=== PATIENT | male | born 1965 ===

== ENCOUNTER 2016-09-24 02:14 | Inpatient (IN) | payer OTHER ==
[2016-09-24] VITALS (23 sets, daily range): BP systolic 77–114; BP diastolic 43–76
--- NOTE | 2016-09-24 03:46 | ED ORDER SUMMARY ---
..... Patient: DARRYL TOBIAS OrderSheet [facility] VisitID: [id number] [place] [address] 50y, M Registration Date/Time: 09/24/2016 ORDER SHEET Weight: 73.9 kg (stated) Allergies: No Known Drug Allergy GENERAL ORDERS: CBC w Diff Urgent (02:24 09/24/2016 Campos Langford) (Ack 2:27 AMcQuoid ER Tech1) (2:48 EInderbitzen R.N.) CMP Urgent (02:24 09/24/2016 Campos Langford) (Ack 2:27 AMcQuoid ER Tech1) (2:48 EInderbitzen R.N.) UA-Culture if indicated Urgent (02:24 09/24/2016 Campos Langford) (Ack 2:27 AMcQuoid ER Tech1) Urine Drug Screen Urgent (02:24 09/24/2016 Campos Langford) (Ack 2:27 AMcQuoid ER Tech1) Ethyl Alcohol Urgent (02:24 09/24/2016 Campos Langford) (Ack 2:27 AMcQuoid ER Tech1) (2:48 EInderbitzen R.N.) Ammonia Level Urgent (02:24 09/24/2016 Campos Langford) (Ack 2:27 AMcQuoid ER Tech1) (2:48 EInderbitzen R.N.) Lactic Acid for Sepsis Protocol Urgent (02:24 09/24/2016 Campos Langford) (Ack 2:27 AMcQuoid ER Tech1) (2:48 EInderbitzen R.N.) PCT (Procalcitonin) Urgent (02:24 09/24/2016 Campos Langford) (Ack 2:27 AMcQuoid ER Tech1) (2:48 EInderbitzen R.N.) PT with INR Urgent (02:51 09/24/2016 Campos Langford) (2:52 AMcQuoid ER Tech1) PTT Urgent (02:51 09/24/2016 Campos Langford) (2:52 AMcQuoid ER Tech1) MEDICATION ORDERS: - (Albumin 25 grams IV x 1 now.) (03:44 09/24/2016 Campos Langford) IV FLUIDS: IV NS : initial bolus none -, then 1000 mL/hr for X1 (NOW) (02:23 09/24/2016 Campos Langford) (Ack 2:35 HSoule) (2:49 Ced R.N.) IV NS : initial bolus none -, then 1000 mL/hr for X2 (NOW) (03:45 09/24/2016 Campos Langford) ORDER SHEET NOTES: This document has not been locked and should not be saved in the medical record.
--- NOTE | 2016-09-24 03:46 | ED CLINICAL REPORT ---
Clinical Report - Physicians/Mid Levels [facility] [address] [place] [address] 09/24/2016 2:15 Patient: DARRYL TOBIAS *This is a preliminary document and is subject to change Time Seen: 02:19; initial patient contact. LABS, X-RAYS, AND EKG Laboratory Tests: CBC w Diff: (ROSAS: 09/24/2016 02:30) ( MsgRcvd 09/24/2016 03:16) Final results Test Result Flag Units (Reference) WHITE BLOOD COUNT 8.4 K/uL (4.5-11.5) RED BLOOD COUNT 2.64 L M/uL (4.50-5.90) HEMOGLOBIN 10.6 L gm/dL (13.5-17.5) HEMATOCRIT 31.9 L % (41.0-53.0) MEAN CELL VOLUME 121 H fL (80-100) MEAN CORPUSCULAR HGB 40 H pg (26-34) MEAN CORPUSCULAR HGB CONC 33 g/dL (31-37) RED CELL DISTRIBUTION WIDTH 15.2 H % (11.6-14.8) PLATELET COUNT 59 L K/uL (150-400) NO PLATELET CLUMPS SEEN. NEUTROPHIL % 55.5 % (50-75) LYMPH % 23.7 L % (25-40) MONO % 15.6 H % (3-14) EOSINOPHIL % 4.9 H % (0-4) BASOPHIL % 0.3 % (0-2) RBC MORPHOLOGY 2+ MACROCYTOSIS PT with INR: (ROSAS: 09/24/2016 02:30) ( MsgRcvd 09/24/2016 03:01) Final results Test Result Flag Units (Reference) INR 1.6 H (0.8-1.2) Low Intensity Therapy: INR 1.5-2.0 PT range 18.5-23.1Mod.Intensity Therapy: INR 2.0-3.0 PT range 23.1-31.5High Intensity Therapy: INR 2.5-3.5 PT range 27.4-35.5High Intensity Therapy 2: INR 3.0-4.0 PT range 31.5-39.3 APTT 46 H SECONDS (24-34) Ammonia Level: (ROSAS: 09/24/2016 02:30) ( MsgRcvd 09/24/2016 02:56) Final results Test Result Flag Units (Reference) AMMONIA 18 umol/L (11-32) [id number]: (ROSAS: 09/24/2016 02:30) ( MsgRcvd 09/24/2016 03:30) Final results Test Result Flag Units (Reference) PROCALCITONIN <0.5 ng/mL (0-0.5) PCT Concentration: Interpretation : Risk/option for action PCT <=0.5 ng/mL : Systemic : Low risk forinfection(sepsis): progression to severeis not likely. : systemic infection.Local bacterial : CAUTION-PCT levelsinfection is : below 0.5 ng/mL do notpossible. : exclude an infection,because localizedinfections (withoutsystemic signs) may beassociated with suchlow levels. If PCT ismeasured very earlyafter a bacterialchallenge (usually <6hours), these valuesmay still be low. Inthis case PCT shouldbe re-assessed 6-24hours later. PCT >0.5 and : Systemic infection: Moderate risk for<= 2 ng/mL : (sepsis) is : progression to severepossible, but : systemic infection.other conditions : The patient should beare known to : closely monitoredelevate PCT. : both clinically andby re-assessing PCTwithin 6-24 hours. PCT > 2 ng/mL : Systemic infection: High risk for(sepsis) is likely: progression to severeunless other : systemic infection.causes are known. : PCT >= 10 ng/mL : Important systemic: High likelihood ofinflammatory : severe sepsis orresponse, almost : septic shock.exclusively due to:severe bacterial :sepsis or septic :shock. : CMP: (ROSAS: 09/24/2016 02:30) ( MsgRcvd 09/24/2016 03:04) Final results Test Result Flag Units (Reference) GLUCOSE 104 mg/dL (70-110) BUN 35 H mg/dL (7-18) CREATININE 2.7 H mg/dL (0.6-1.3) Estimated GFR 26.51 mL/min Estimated GFR- 32.13 mL/min Note: Persistent reduction over 3 months in eGFR<60 mL/min/1.73 m2 defines CKD. Patients with eGFR values>=60 mL/min/1.73 m2 may also have CKD if evidence ofpersistent proteinuria. Additional information may be foundat www.kidney.org. SODIUM 135 L mmol/L (136-145) POTASSIUM 4.1 mmol/L (3.5-5.1) CHLORIDE 103 mmol/L (98-107) CARBON DIOXIDE 20 L mmol/L (21-32) CALCIUM 8.4 L mg/dL (8.5-10.1) TOTAL PROTEIN 6.7 g/dL (6.4-8.2) ALBUMIN 2.3 L g/dL (3.3-5.0) BILIRUBIN, TOTAL 8.7 H mg/dL (0.0-1.0) ALKALINE PHOSPHATASE 105 U/L (46-116) AST (SGOT) 38 H U/L (15-37) ALT (SGPT) 16 U/L (12-78) ETHYL ALCOHOL 78 H mg/dL (3-10) LACTIC ACID SEPSIS PROTOCOL 2.0 mmol/L (0.4-2.0) . PROGRESS AND PROCEDURES Discussed case with on-call health care provider, (02:[address] Alexander, wants him admitted to hospitalist due to medical co-morbidities and will take to the OR in the AM.). Wesley Nelson Dr.
--- NOTE | 2016-09-24 03:46 | ED NURSING NOTES ---
Clinical Report - Nurses [facility] [address] [place] [address] 09/24/2016 2:15 [id number] Triage time 02:Sep 24 2016. Acuity: LEVEL 2. Chief Complaint: (hernia perforation thru abd wall). 02:22 09/24/16. SEPSIS SCREEN: Sepsis Screen. Negative (no infection suspected/documented). FRANCISCO COMA SCORE: Francisco Coma Scale: 15- eyes open spontaneously (4); best verbal response- oriented x 4 (5); best motor response- obeys commands (6). --02:22 Rebecca Sadler R.N. 02:18 09/24/16. Pain level now 0/10. --02:22 Rebecca Sadler R.N. Weight: 73.9 kg stated. Height/Length: 68 inches Per Patient. BMI: 24.8. --02:17 Rebecca Sadler R.N. Medications Spironolactone Oral. --05:18 Rebecca Sadler R.N. Lasix Oral. --05:19 Rebecca Sadler R.N. Propranolol. --05:19 Rebecca Sadler R.N. Lactulose Oral. --05:19 Rebecca Sadler R.N. Medication/allergy information source: the patient. --02:22 Rebecca Sadler R.N. Allergies No Known Drug Allergy. --02:19 Rebecca Sadler R.N. History Arrived by EMS. Historian: patient. This started today. Onset. (6 hours ago ( 830pm)). No fever, weakness, cough, difficulty breathing or skin rash. Denies muscle aches. 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 SOCIAL HX: Heavy tobacco smoker (cigarette)- 1 pack per day. Occasional alcohol use. No drug use. No infectious disease exposure. ABUSE ASSESSMENT: No report of abuse. SELF HARM ASSESSMENT: A self harm assessment was performed. The patient answered "no" to the question "Have you recently felt down, depressed, or hopeless?", "Have you noticed less interest or pleasure in doing things?", "Do you have thoughts of harming or killing yourself?", "Are you here because you tried to hurt yourself?", "Have you ever tried to hurt yourself before today?", "Have you recently had thoughts about harming or killing others?" and "Do you have any dangerous items in your possession?". FALL RISK ASSESSMENT: Fall risk assessment completed. No fall risk identified. NUTRITIONAL RISK ASSESSMENT: The nutritional risk assessment revealed no deficiencies. FUNCTIONAL ASSESSMENT: Functional assessment: no impairments noted. LEARNING NEEDS ASSESSMENT: The learning needs assessment revealed no barriers. SKIN INTEGRITY ASSESSMENT: Skin integrity risk assessment completed. No skin integrity risk identified. --02:22 Rebecca Sadler R.N. PROBLEMS: Umbilical Hernia. Liver disease. --02:20 Rebecca Sadler R.N. Alcoholic Liver Disease. --05:19 Rebecca Sadler R.N. Interventions ID band on patient. --02:22 Rebecca Sadler R.N. PHYSICAL ASSESSMENT 02:24 09/24/16. To room via stretcher. Patient gowned. GENERAL / NEURO / PSYCH: Alert. Oriented X 4. HEENT: Pupils equal, round and reactive to light. Mucous membranes are pink. RESPIRATORY: Breath sounds within normal limits. CVS: Pulses within normal limits. GI / : ( umbilical hernia perforation thru abd wall, surrounding erythema with loop of bowel visible. Area size larger than golf ball). Abdominal tenderness. --02:24 Rebecca Sadler R.N. NURSING PROGRESS NOTES 02:23 09/24/16. The initial plan of care for this patient includes an assessment with efforts to address the presence of pain. This plan of care was discussed with the patient. Monitoring of patient in place. Reassurance given. Two patient identifiers checked. Side rails up x 2. Bed placed in lowest position. Brakes of bed on. ( Dr Nelson brought to room for triage to assess). --02:23 Rebecca Sadler R.NKimani 02:35 09/24/2016 Site #1 started via IV in the right antecubital space with an 18g angiocath, with aseptic technique and good blood return; one attempt. Blood drawn: rainbow set. Labeled in the presence of the patient and sent to the lab. Saline lock flushed with 10 mL saline. --02:35 Lucila Leah 02:37 09/24/2016 Site #2 started via IV in the right wrist with an 20g angiocath; one attempt. Blood drawn: rainbow set. Labeled in the presence of the patient and sent to the lab. Saline lock flushed with 10 mL saline. --02:37 Twila Lea 02:40 09/24/2016 Started bag #1 1000 mL IV Fluids IV NS (Saline); at 1000 mL/hr over 1 hour(s) via site #2. Allergies verified and confirmed 5 rights. IV patency established. IV site checked: no pain, redness, or swelling. IV flushed thoroughly pre- and post-medication administration. --02:49 Rebecca Sadler R.N. 03:00 09/24/16. Reassessment after fluids administered. He is resting quietly. Overall patient status is the same- he states feels the same. ( warm blankets provided). --03:18 Rebecca Sadler R.N. 03:00 09/24/16. BP: 94/52. HR: 72. RR: 20. O2 saturation: 96%. Pain level now 0/10. --03:18 Rebecca Sadler R.N. 03:50 09/24/16. BP: 88/46. HR: 74. RR: 16. O2 saturation: 97%. Pain level now 0/10. --03:50 Rebecca Sadler R.N. 03:50 09/24/16. ( informed of blood pressure. Albumin ordered , then to give another liter nss following albumin. taping supervisor to obtain Albumin from pharmacy.). --03:50 Rebecca Sadler R.NKimani 04:00 09/24/16. ( Patient had copious drainage from umbilicus. Saturated gown, trauma dressing and 2 layers of undersheets. IVF continued. Albumin started). --04:11 Rebecca Sadler R.N. 04:00 09/24/16. BP: 101/57. HR: 73. RR: 18. O2 saturation: 99%. Pain level now 0/10. --04:11 Rebecca Sadler R.N. 04:02 09/24/16. ( Clean linens, gown and trauma dressing applied.). --04:15 Rebecca Sadler R.N. 04:05 09/24/2016 Albumin 25% in 50 ml * IV 50 ml --04:13 Rebecca Sadler R.N. 04:05 09/24/2016 Started bag #1 1000 mL IV Fluids IV NS (Saline); at 1000 mL/hr over 1 hour(s) via site #2. Allergies verified and confirmed 5 rights. IV patency established. IV site checked: no pain, redness, or swelling. IV flushed thoroughly pre- and post-medication administration. --04:13 Rebecca Sadler R.N. 04:30 09/24/2016 Started 2.25 gm of Zosyn (Piperacillin Sod-Tazobactam So) IVPB in bag #1 60 mL; at 120 mL/hr over 30 minute(s) via site #2 via IV pump. Allergies verified and confirmed 5 rights. IV patency established. IV site checked: no pain, redness, or swelling. IV flushed thoroughly pre- and post-medication administration. --04:31 Rebecca Sadler R.N. 04:59 09/24/2016 Zosyn IVPB Discontinued: bag #1 completed. Total amount infused: 50 mL. IV patency established. IV site checked: no pain, redness, or swelling. IV flushed thoroughly. --04:59 Twila Lea The patient is resting quietly. ( Patient has no complaints at this time). --05:01 Twila Lea 05:00 09/24/16. BP: 96/54. HR: 72. RR: 20. O2 saturation: 97% on room air. --05:01 Twila Lea 05:15 09/24/16. The patient is resting quietly. Overall patient status is the same- he states feels the same. ( heavy drainage dressing half saturated. New one placed. Pt has no complaints other than being cold. Additional warm blankets provided. BP cuff repositioned.). --05:15 Rebecca Sadler R.NKimani 05:15 09/24/16. BP: 88/46. HR: 72. RR: 16. O2 saturation: 97%. Pain level now 0/10. --05:15 Rebecca Salder R.NKimani 06:10 09/24/16. BP: 92/55. HR: 73. RR: 20. O2 saturation: 98% on room air. Temp: 98.5 F (oral). Pain level now: 0/10. --06:11 Lucila Leah. DISPOSITION / DISCHARGE 03:40 09/24/2016 IV Fluids IV NS Discontinued: bag #1 completed. Total amount infused: 1000 mL. IV patency established. IV site checked: no pain, redness, or swelling. IV flushed thoroughly. --06:22 Rebecca Sadler R.N. 04:15 09/24/2016 Albumin 25% in 50 ml IV Discontinued: completed. Total amount infused: 50 mL. IV patency established. IV site checked: no pain, redness, or swelling. IV flushed thoroughly. --06:21 Rebecca Sadler R.NKimani 06:21 09/24/2016 IV Fluids IV NS Discontinued: bag #2 completed upon admission. Total amount infused: 1000 mL. IV patency established. IV site checked: no pain, redness, or swelling. IV flushed thoroughly. --06:21 Rebecca Sadler R.N. 06:22 09/24/2016 Site #[address] upon admission; patent. --06:22 Rebecca Sadler R.NKimani 06:22 09/24/2016 Site #[address] upon admission; patent. --06:22 Rebecca Sadler R.N. Departure time: 06:Sep 24 2016. Condition at departure: unchanged and critical. The goals identified in the patient's plan of care were met. No learning barriers present. Admitted to the Critical Care Unit. Transported via stretcher by nurse with monitor and IV. Report was given to a nurse via a phone call. Report included patient's care, treatment, medications, reviewed medication reconcilliation, and condition (including any recent changes or anticipated changes). All questions were answered. Report was acknowledged and care was transferred. (to VIKRAM Queen). ( Transported to ICU by VIKRAM Dc). --06:23 Rebecca Sadler R.N. 06:10 09/24/16. BP: 92/55. HR: 73. RR: 20. O2 saturation: 98% on room air. Temp: 98.5 F (oral). Pain level now: 0/10. --06:23 Rebecca Sadler R.N. Locked/Released at 09/24/2016 6:24 by Rebecca Sadler R.N.
--- NOTE | 2016-09-24 03:46 | ED CLINICAL REPORT ---
Clinical Report - Physicians/Mid Levels [facility] [address] [place] [address] 09/24/2016 2:15 Patient: DARRYL TOBIAS *This is a preliminary document and is subject to change Time Seen: 02:19; initial patient contact. LABS, X-RAYS, AND EKG Laboratory Tests: CBC w Diff: (ROSAS: 09/24/2016 02:30) ( MsgRcvd 09/24/2016 03:16) Final results Test Result Flag Units (Reference) WHITE BLOOD COUNT 8.4 K/uL (4.5-11.5) RED BLOOD COUNT 2.64 L M/uL (4.50-5.90) HEMOGLOBIN 10.6 L gm/dL (13.5-17.5) HEMATOCRIT 31.9 L % (41.0-53.0) MEAN CELL VOLUME 121 H fL (80-100) MEAN CORPUSCULAR HGB 40 H pg (26-34) MEAN CORPUSCULAR HGB CONC 33 g/dL (31-37) RED CELL DISTRIBUTION WIDTH 15.2 H % (11.6-14.8) PLATELET COUNT 59 L K/uL (150-400) NO PLATELET CLUMPS SEEN. NEUTROPHIL % 55.5 % (50-75) LYMPH % 23.7 L % (25-40) MONO % 15.6 H % (3-14) EOSINOPHIL % 4.9 H % (0-4) BASOPHIL % 0.3 % (0-2) RBC MORPHOLOGY 2+ MACROCYTOSIS PT with INR: (ROSAS: 09/24/2016 02:30) ( MsgRcvd 09/24/2016 03:01) Final results Test Result Flag Units (Reference) INR 1.6 H (0.8-1.2) Low Intensity Therapy: INR 1.5-2.0 PT range 18.5-23.1Mod.Intensity Therapy: INR 2.0-3.0 PT range 23.1-31.5High Intensity Therapy: INR 2.5-3.5 PT range 27.4-35.5High Intensity Therapy 2: INR 3.0-4.0 PT range 31.5-39.3 APTT 46 H SECONDS (24-34) Ammonia Level: (ROSAS: 09/24/2016 02:30) ( MsgRcvd 09/24/2016 02:56) Final results Test Result Flag Units (Reference) AMMONIA 18 umol/L (11-32) [id number]: (ROSAS: 09/24/2016 02:30) ( MsgRcvd 09/24/2016 03:30) Final results Test Result Flag Units (Reference) PROCALCITONIN <0.5 ng/mL (0-0.5) PCT Concentration: Interpretation : Risk/option for action PCT <=0.5 ng/mL : Systemic : Low risk forinfection(sepsis): progression to severeis not likely. : systemic infection.Local bacterial : CAUTION-PCT levelsinfection is : below 0.5 ng/mL do notpossible. : exclude an infection,because localizedinfections (withoutsystemic signs) may beassociated with suchlow levels. If PCT ismeasured very earlyafter a bacterialchallenge (usually <6hours), these valuesmay still be low. Inthis case PCT shouldbe re-assessed 6-24hours later. PCT >0.5 and : Systemic infection: Moderate risk for<= 2 ng/mL : (sepsis) is : progression to severepossible, but : systemic infection.other conditions : The patient should beare known to : closely monitoredelevate PCT. : both clinically andby re-assessing PCTwithin 6-24 hours. PCT > 2 ng/mL : Systemic infection: High risk for(sepsis) is likely: progression to severeunless other : systemic infection.causes are known. : PCT >= 10 ng/mL : Important systemic: High likelihood ofinflammatory : severe sepsis orresponse, almost : septic shock.exclusively due to:severe bacterial :sepsis or septic :shock. : CMP: (ROSAS: 09/24/2016 02:30) ( MsgRcvd 09/24/2016 03:04) Final results Test Result Flag Units (Reference) GLUCOSE 104 mg/dL (70-110) BUN 35 H mg/dL (7-18) CREATININE 2.7 H mg/dL (0.6-1.3) Estimated GFR 26.51 mL/min Estimated GFR- 32.13 mL/min Note: Persistent reduction over 3 months in eGFR<60 mL/min/1.73 m2 defines CKD. Patients with eGFR values>=60 mL/min/1.73 m2 may also have CKD if evidence ofpersistent proteinuria. Additional information may be foundat www.kidney.org. SODIUM 135 L mmol/L (136-145) POTASSIUM 4.1 mmol/L (3.5-5.1) CHLORIDE 103 mmol/L (98-107) CARBON DIOXIDE 20 L mmol/L (21-32) CALCIUM 8.4 L mg/dL (8.5-10.1) TOTAL PROTEIN 6.7 g/dL (6.4-8.2) ALBUMIN 2.3 L g/dL (3.3-5.0) BILIRUBIN, TOTAL 8.7 H mg/dL (0.0-1.0) ALKALINE PHOSPHATASE 105 U/L (46-116) AST (SGOT) 38 H U/L (15-37) ALT (SGPT) 16 U/L (12-78) ETHYL ALCOHOL 78 H mg/dL (3-10) LACTIC ACID SEPSIS PROTOCOL 2.0 mmol/L (0.4-2.0) . PROGRESS AND PROCEDURES Discussed case with on-call health care provider, (02:[address] Alexander, wants him admitted to hospitalist due to medical co-morbidities and will take to the OR in the AM.). Wesley Nelson Dr.
--- NOTE | 2016-09-24 03:46 | ED ORDER SUMMARY ---
..... Patient: DARRYL TOBIAS OrderSheet [facility] VisitID: [id number] [place] [address] 50y, M Registration Date/Time: 09/24/2016 ORDER SHEET Weight: 73.9 kg (stated) Allergies: No Known Drug Allergy GENERAL ORDERS: CBC w Diff Urgent (02:24 09/24/2016 Campos Langford) (Ack 2:27 AMcQuoid ER Tech1) (2:48 EInderbitzen R.N.) CMP Urgent (02:24 09/24/2016 Campos Langford) (Ack 2:27 AMcQuoid ER Tech1) (2:48 EInderbitzen R.N.) UA-Culture if indicated Urgent (02:24 09/24/2016 Campos Langford) (Ack 2:27 AMcQuoid ER Tech1) Urine Drug Screen Urgent (02:24 09/24/2016 Campos Langford) (Ack 2:27 AMcQuoid ER Tech1) Ethyl Alcohol Urgent (02:24 09/24/2016 Campos Langford) (Ack 2:27 AMcQuoid ER Tech1) (2:48 EInderbitzen R.N.) Ammonia Level Urgent (02:24 09/24/2016 Campos Langford) (Ack 2:27 AMcQuoid ER Tech1) (2:48 EInderbitzen R.N.) Lactic Acid for Sepsis Protocol Urgent (02:24 09/24/2016 Campos Langford) (Ack 2:27 AMcQuoid ER Tech1) (2:48 EInderbitzen R.N.) PCT (Procalcitonin) Urgent (02:24 09/24/2016 Campos Langford) (Ack 2:27 AMcQuoid ER Tech1) (2:48 EInderbitzen R.N.) PT with INR Urgent (02:51 09/24/2016 Campos Langford) (2:52 AMcQuoid ER Tech1) PTT Urgent (02:51 09/24/2016 Campos Langford) (2:52 AMcQuoid ER Tech1) MEDICATION ORDERS: - (Albumin 25 grams IV x 1 now.) (03:44 09/24/2016 Campos Langford) IV FLUIDS: IV NS : initial bolus none -, then 1000 mL/hr for X1 (NOW) (02:23 09/24/2016 Campos Langford) (Ack 2:35 HSoule) (2:49 Ced R.N.) IV NS : initial bolus none -, then 1000 mL/hr for X2 (NOW) (03:45 09/24/2016 Campos Langford) ORDER SHEET NOTES: This document has not been locked and should not be saved in the medical record.
[2016-09-24] MEDS ORDERED: LASIX20 MG PO (07:01)
[2016-09-24] MEDS ORDERED: LACTULOSE PO (07:01)
[2016-09-24] MEDS ORDERED: ABILIFY5 MG PO (07:02)
[2016-09-24] MEDS ORDERED: ALDACTONE25 MG PO (07:02)
[2016-09-24] MEDS ORDERED: INDERAL EQUIVAL20 MG PO (07:02)
--- NOTE | 2016-09-24 07:04 | History & Physical Report ---
Admission Admit Date 09/24/16 History Chief Complaint Abdominal Pain, Drainage History of Present Illness Patient is a 50 year old male with a past medical history of End-Stage Liver Disease, Alcoholic Cirrhosis, Chronic Kidney Disease, Alcoholism, and Tobacco Use Disorder. He presents to the ER at [facility] complaining of drainage from his abdomen and mild abdominal pain. Pt states he was making dinner in his home yesterday evening, when he suddenly noted the shirt he was wearing was wet around his umbilicus. Pt states he has had an umbilical hernia for quite some time and has had tense ascites in his abdomen over the last several weeks which seems to have worsened. He states after he noticed his shirt was wet, he went to the bathroom and realized he had perforated through his umbilical hernia and drained approximately half a liter of clear fluid from it. Pt denies any fever, chills, nausea, vomiting, and diarrhea. He denies any shortness of breath. Pt does report some mild abdominal cramping diffusely however. No other complaints or concerns at this time. Patient History 1. Alcoholism 2. Tobacco use disorder 3. Chronic kidney disease 4. Alcoholic cirrhosis 5. End stage liver disease 6. Umbilical hernia Social History Pt continues to smoke 1 pack of cigarettes daily. He also continues to drink daily. He denies any use of illicit drugs. He lives alone. Family History Family history was reviewed; no changes noted. Medications and Allergies Medications Current Medications Sig/Nicki Start time Last Medication Dose Route Stop Time Status Admin Pantoprazole Sodium 40 MG DAILY@0600 09/24 0700 AC IV Albuterol Sulfate 2.5 MG Q3H PRN 09/24 0645 AC IN Morphine Sulfate 1 MG Q2H PRN 09/24 0645 AC IV Naloxone HCl 0.4 MG PRN PRN 09/24 0645 AC IV Ondansetron HCl 4 MG Q6H PRN 09/24 0645 AC IV Sodium Chloride 1,000 ML ASDIRECTED 09/24 645 AC IV Cefotaxime Sodium 2,000 MG Q8H 09/24 0630 UNV IV Home Medications: 1. Lactulose 2. Propranolol 3. Lasix 4. Spironolactone Allergies Coded Allergies: NKA (09/24/16) Review of Systems Other All systems reviewed and are negative except for what has already been mentioned in the HPI. Physical Exam Vital Signs / I&Os Vital Signs Date Time Temp Pulse Resp B/P Pulse O2 O2 Flow FiO2 Ox Delivery Rate 09/24 0621 99.1 72 13 93/54 97 Room Air Other GENERAL: NAD; Pt laying comfortably in bed HEENT: AT/NC; PERRLA, EOMI; Pt has a glass left eye; Pt has scleral icterus in his right eye; MM dry CARDIAC: RRR, No M/R/G appreciated PULM: Clear to auscultation bilaterally ABD: Soft, Mildly tender to palpation around umbilicus, ND, Positive BS in all quadrants; Pt does have a perforation around his umbilical hernia with a loop of small bowel visable EXT: No C/C/E in bilateral upper and lower extremity; No calve tenderness bilaterally SKIN: Warm, dry, pink, and intact NEURO: Alert and oriented x3; Following all commands PSYCH: Normal mood and affect LAB Results Laboratory Tests 09/24 09/24 09/24 0230 0230 0230 Chemistry Plasma Sodium (136 - 145 mmol/L) 135 Plasma Potassium (3.5 - 5.1 mmol/L) 4.1 Plasma Chloride (98 - 107 mmol/L) 103 CO2 (Enzymatic) (21 - 32 mmol/L) 20 BUN (7 - 18 mg/dL) 35 Creatinine (0.6 - 1.3 mg/dL) 2.7 Est GFR ( Amer) (mL/min) 32.13 Est GFR (Non-Af Amer) (mL/min) 26.51 Glucose (70 - 110 mg/dL) 104 Lactic Acid (0.4 - 2.0 mmol/L) 2.0 Plasma Calcium (8.5 - 10.1 mg/dL) 8.4 Total Bilirubin (0.0 - 1.0 mg/dL) 8.7 AST (15 - 37 U/L) 38 ALT (12 - 78 U/L) 16 Alkaline Phosphatase (46 - 116 U/L) 105 Ammonia (11 - 32 umol/L) 18 Total Protein (6.4 - 8.2 g/dL) 6.7 Albumin (3.3 - 5.0 g/dL) 2.3 Procalcitonin (0 - 0.5 ng/mL) <0.5 Coagulation INR (0.8 - 1.2) 1.6 APTT (24 - 34 SECONDS) 46 Hematology WBC (4.5 - 11.5 K/uL) 8.4 RBC (4.50 - 5.90 M/uL) 2.64 Hgb (13.5 - 17.5 gm/dL) 10.6 Hct (41.0 - 53.0 %) 31.9 MCV (80 - 100 fL) 121 MCH (26 - 34 pg) 40 RDW (11.6 - 14.8 %) 15.2 Neut % (Auto) (50 - 75 %) 55.5 Lymph % (Auto) (25 - 40 %) 23.7 [place] % (Auto) (3 - 14 %) 15.6 Eos % (Auto) (0 - 4 %) 4.9 Baso % (Auto) (0 - 2 %) 0.3 Plt Count, EDTA (150 - 400 K/uL) 59 RBC Morphology 2+ MACROCYTOSIS PUBS MCHC (31 - 37 g/dL) 33 Toxicology Plasma/Serum Ethyl Alc (3 - 10 mg/dL) 78 Microbiology Date/Time Procedure - Status Source Growth 09/24 638 Superficial Wound Culture - ORD ABDOMEN 09/24 638 Gram Stain - ORD ABDOMEN 09/24 638 Blood Culture - ORD BLOOD 09/24 638 Blood Culture - ORD BLOOD Assessment and Plan Problem List 1. Septic shock Plan - Present on admission - Secondary to perforated abdominal wall - Bolus with 2 liters Normal Saline STAT - Start IV Cefotaxime 2 grams q 8 hours - Blood cultures x2 - Check STAT Lactate - Repeat CBC and Chem 12 in AM - Maintainence IV fluids at 150 ml/hour - Hold home Spironolactone, Lactulose, and Lasix 2. SECONDARY BACTERIAL PERITONITIS Plan - Secondary to umbilical hernia perforation - WBC count this morning is 38,000 - Start IV Cefotaxime 2 grams q 8 hours now - General Surgery consulted - Pt to be kept NPO for surgery today 3. PERFORATED UMBILICAL HERNIA Plan - See above - General Surgery consulted - Pt will need emergency surgery, although his chances of surviving surgery are poor and this has been explained to him 4. End stage liver disease Plan - Secondary to chronic alcoholsim - INR is 1.6 and pt is not on any anticoagulation - Hold home Lasix, Spironolactone, Lactulose, and Propranolol for now 5. Alcoholic cirrhosis Plan - See above 6. Chronic kidney disease Plan - Unsure of pts renal function at baseline - Bolusing IV fluid now - Recheck renal function in AM - Avoid nephrotoxic substances - Hold Lasix and Aldactone for now 7. Tobacco use disorder Plan - Pt counseled to quit smoking FULL CODE, per discussion with patient at bedside 65 minutes critical care time spent managing pts Septic Shock.
--- NOTE | 2016-09-24 09:06 | CONSULTATION REPORT ---
DATE OF CONSULTATION: 09/24/2016 CHIEF COMPLAINT: 1. Cirrhosis 2. Hepatitis 3. Ascites 4. Umbilical hernia erosion with ascitic leak HISTORY OF PRESENT ILLNESS: The patient is a 50-year-old male with known history of hepatitis, cirrhosis, ascites with an umbilical hernia. He is followed by an [place] commercial fisher, who the surgeons in [facility] would not operate on until his hepatitis was under control. He presented to [facility] 09/21/2016 with an umbilical hernia with excoriation. He was scheduled for surgery; however, because of the pressure within his abdomen and the thinness of the abdominal wall, he has now developed an ascitic leak through the area of excoriation. MEDICAL/SURGICAL HISTORY: Cirrhosis, hepatitis, ascites. He is being followed by a commercial fisher in [place]. 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 Colonoscopy, 2014. Elbow arthroplasty in the past. MEDICATIONS: 1. Furosemide 20 mg twice a day. 2. Lactulose 10 mg in 15 mL solution daily. 3. Propranolol 10 mg twice a day. 4. Spironolactone 25 mg 4 times a day. ALLERGIES: 1. NONE. SOCIAL HISTORY: Single. No children. Unemployed. Does not drink coffee. Smokes a pack of cigarettes a day. The patient states that he has not used alcohol in some time now, but has used it in the past quite regularly. FAMILY HISTORY: Father , age 50, [place]. Mother age 84, natural causes. REVIEW OF SYSTEMS: No history of blood transfusion, heart murmurs requiring antibiotics, or bleeding tendencies. He does have a history of hepatitis. The patient continues to feel poorly, with general malaise. He has no vision out of his left eye, of course. He does have itching of the skin. The remaining 12-point review of systems is negative. PHYSICAL EXAMINATION: VITAL SIGNS: Blood pressure 120/72, pulse 80, respirations 16, temperature 98.8. The patient has a BMI of 24.2. GENERAL: The patient does not appear to be in any acute distress. He is alert, awake, oriented, anxious as expected. HEENT: Normocephalic, atraumatic. Pupils equal and reactive on the right. The patient has icterus. No nasal septal defect or discharge. External auditory canals clear. Moist mucous membranes. NECK: Supple. No JVD, carotid bruit or adenopathy. LUNGS: Clear. No rales, rhonchi, or wheezing. HEART: Regular. No murmurs. ABDOMEN: Distended. He has hypoactive bowel sounds. He has leak of ascites from his umbilicus. He has a large area of excoriation, measuring approximately 3 x 3 cm in size. He has a reducible umbilical hernia. He has ascites, a fluid wave. I cannot palpate his spleen or his liver, however, because of the ascites. EXTREMITIES: No pretibial or ankle edema. SKIN: Mild yellowing/jaundice. NEUROLOGIC: The patient is grossly intact, with no focal motor neurological deficits. LYMPHATICS: No cervical, supraclavicular, axillary, or groin adenopathy. IMPRESSION: 1. Cirrhosis 2. Hepatitis 3. Ascites 4. Reducible umbilical hernia 5. Ascitic leak PLAN: Repair. The procedure has been explained to the patient. He understands that complications do include recurrence of the hernia and infection of the ascites. All questions answered to his satisfaction. We will schedule him emergently.
--- NOTE | 2016-09-24 09:06 | CONSULTATION REPORT ---
DATE OF CONSULTATION: 09/24/2016 CHIEF COMPLAINT: 1. Cirrhosis 2. Hepatitis 3. Ascites 4. Umbilical hernia erosion with ascitic leak HISTORY OF PRESENT ILLNESS: The patient is a 50-year-old male with known history of hepatitis, cirrhosis, ascites with an umbilical hernia. He is followed by an [place] rotational moulding operator, who the surgeons in [facility] would not operate on until his hepatitis was under control. He presented to [facility] 09/21/2016 with an umbilical hernia with excoriation. He was scheduled for surgery; however, because of the pressure within his abdomen and the thinness of the abdominal wall, he has now developed an ascitic leak through the area of excoriation. MEDICAL/SURGICAL HISTORY: Cirrhosis, hepatitis, ascites. He is being followed by a rotational moulding operator in [place]. 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 Colonoscopy, 2014. Elbow arthroplasty in the past. MEDICATIONS: 1. Furosemide 20 mg twice a day. 2. Lactulose 10 mg in 15 mL solution daily. 3. Propranolol 10 mg twice a day. 4. Spironolactone 25 mg 4 times a day. ALLERGIES: 1. NONE. SOCIAL HISTORY: Single. No children. Unemployed. Does not drink coffee. Smokes a pack of cigarettes a day. The patient states that he has not used alcohol in some time now, but has used it in the past quite regularly. FAMILY HISTORY: Father , age 50, [place]. Mother age 84, natural causes. REVIEW OF SYSTEMS: No history of blood transfusion, heart murmurs requiring antibiotics, or bleeding tendencies. He does have a history of hepatitis. The patient continues to feel poorly, with general malaise. He has no vision out of his left eye, of course. He does have itching of the skin. The remaining 12-point review of systems is negative. PHYSICAL EXAMINATION: VITAL SIGNS: Blood pressure 120/72, pulse 80, respirations 16, temperature 98.8. The patient has a BMI of 24.2. GENERAL: The patient does not appear to be in any acute distress. He is alert, awake, oriented, anxious as expected. HEENT: Normocephalic, atraumatic. Pupils equal and reactive on the right. The patient has icterus. No nasal septal defect or discharge. External auditory canals clear. Moist mucous membranes. NECK: Supple. No JVD, carotid bruit or adenopathy. LUNGS: Clear. No rales, rhonchi, or wheezing. HEART: Regular. No murmurs. ABDOMEN: Distended. He has hypoactive bowel sounds. He has leak of ascites from his umbilicus. He has a large area of excoriation, measuring approximately 3 x 3 cm in size. He has a reducible umbilical hernia. He has ascites, a fluid wave. I cannot palpate his spleen or his liver, however, because of the ascites. EXTREMITIES: No pretibial or ankle edema. SKIN: Mild yellowing/jaundice. NEUROLOGIC: The patient is grossly intact, with no focal motor neurological deficits. LYMPHATICS: No cervical, supraclavicular, axillary, or groin adenopathy. IMPRESSION: 1. Cirrhosis 2. Hepatitis 3. Ascites 4. Reducible umbilical hernia 5. Ascitic leak PLAN: Repair. The procedure has been explained to the patient. He understands that complications do include recurrence of the hernia and infection of the ascites. All questions answered to his satisfaction. We will schedule him emergently.
--- NOTE | 2016-09-24 10:30 | ED MED RECONCILIATION SUMMARY ---
Patient: DARRYL TOBIAS Medication Reconciliation Report [facility] VisitID: [id number] [address] [place] [address] 50y, M Registration Date/Time: 09/24/2016 Weight: 73.9 kg Height/Length: 68 in. BMI: 24.8 ALLERGIES: No Known Drug Allergy The patient's Home Medications are listed below: THE FOLLOWING MEDICATIONS NEED TO BE RECONCILED: Lactulose Oral Lasix Oral Propranolol Spironolactone Oral The source(s) of the original Home Medication information: patient The following Medications were given to the patient in the Emergency Department: IV NS IV Fluids bolus 0, then 1000 mL/hr, administered: 09/24/2016 2:40:00 AM Albumin 25% in 50 ml IV bolus 0, then 50 ml, administered: 09/24/2016 4:05:00 AM IV NS IV Fluids bolus 0, then 1000 mL/hr, administered: 09/24/2016 4:05:00 AM Zosyn [IVPB] IVPB bolus 0, then 2.25 gm 120 mL/hr, administered: 09/24/2016 4:30:00 AM The following Medications were prescribed to the patient: None.
--- NOTE | 2016-09-24 10:30 | ED MED RECONCILIATION SUMMARY ---
Patient: DARRYL TOBIAS Medication Reconciliation Report [facility] VisitID: [id number] [address] [place] [address] 50y, M Registration Date/Time: 09/24/2016 Weight: 73.9 kg Height/Length: 68 in. BMI: 24.8 ALLERGIES: No Known Drug Allergy The patient's Home Medications are listed below: THE FOLLOWING MEDICATIONS NEED TO BE RECONCILED: Lactulose Oral Lasix Oral Propranolol Spironolactone Oral The source(s) of the original Home Medication information: patient The following Medications were given to the patient in the Emergency Department: IV NS IV Fluids bolus 0, then 1000 mL/hr, administered: 09/24/2016 2:40:00 AM Albumin 25% in 50 ml IV bolus 0, then 50 ml, administered: 09/24/2016 4:05:00 AM IV NS IV Fluids bolus 0, then 1000 mL/hr, administered: 09/24/2016 4:05:00 AM Zosyn [IVPB] IVPB bolus 0, then 2.25 gm 120 mL/hr, administered: 09/24/2016 4:30:00 AM The following Medications were prescribed to the patient: None.
--- NOTE | 2016-09-24 10:30 | ED MAR SUMMARY ---
..... Medication Administration Record [facility] [address] [place] [address] Patient: DARRYL TOBIAS Visit ID: [id number] 50y, M Weight: 73.9 kg Height/Length: 68 in BMI: 24.8 ALLERGIES: No Known Drug Allergy Start 02:40 09/24/2016 Rebecca Sadler R.N., Stop 03:40 09/24/2016 Rebecca Sadler R.N. Medication Administered: IV NS (SALINE), Dose: IV Fluids over 1 hour(s), Rate: 1000 mL/hr, Dispensed: 1000 mL bag, Site: #2 right wrist. Medication Ordered: IV NS : initial bolus none -, then 1000 mL/hr for X1 (NOW). Start 04:05 09/24/2016 Rebecca Sadler R.N., Stop 04:15 09/24/2016 Rebecca Sadler R.N. Medication Administered: Albumin 25% in 50 ml *, Dose: 50 ml * IV. Medication Ordered: - (Albumin 25 grams IV x 1 now.). Start 04:05 09/24/2016 Rebecca Sadler R.N., Stop 06:21 09/24/2016 Rebecca Sadler R.N. Medication Administered: IV NS (SALINE), Dose: IV Fluids over 1 hour(s), Rate: 1000 mL/hr, Dispensed: 1000 mL bag, Site: #2 right wrist. Medication Ordered: IV NS : initial bolus none -, then 1000 mL/hr for X2 (NOW). Start 04:30 09/24/2016 Rebecca Sadler RSean., Stop 04:59 09/24/2016 Twila Lea, Medication Administered: ZOSYN [IVPB] (PIPERACILLIN SOD-TAZOBACTAM SO), Dose: 2.25 gm IVPB over 30 minute(s), Rate: 120 mL/hr, Dispensed: 60 mL bag, Site: #2 right wrist. Medication Ordered: Zosyn IV 2.25 gm/50mL (NOW).
--- NOTE | 2016-09-24 10:30 | ED DISCHARGE INSTRUCTIONS ---
Patient: DARRYL TOBIAS General Instructions [facility] VisitID: [id number] [address] [place] [address] 50y, M Registration Date/Time: 09/24/2016 09/24/2016 03:50 BP: 88/46. HR: 74. RR: 16. O2 saturation: 97%. Vital Signs: have been reviewed. Hypotensive. Heart rate normal. Respiratory rate normal. Oxygen saturation normal. Umbilical hernia. No reducible hernia, recurrent hernia, incarcerated hernia, obstruction or gangrene. Alcoholic cirrhosis of the liver. Complete abdominal wound dehiscence. Moderate acute renal failure. Not chronic renal failure or end stage renal disease. Abnormal serum liver function test. Moderate thrombocytopenia. (Electronically signed by Wesley Nelson Dr. 09/24/2016 10:30)
--- NOTE | 2016-09-24 10:30 | ED MAR SUMMARY ---
..... Medication Administration Record [facility] [address] [place] [address] Patient: DARRYL TOBIAS Visit ID: [id number] 50y, M Weight: 73.9 kg Height/Length: 68 in BMI: 24.8 ALLERGIES: No Known Drug Allergy Start 02:40 09/24/2016 Rebecca Sadler R.N., Stop 03:40 09/24/2016 Rebecca Sadler R.N. Medication Administered: IV NS (SALINE), Dose: IV Fluids over 1 hour(s), Rate: 1000 mL/hr, Dispensed: 1000 mL bag, Site: #2 right wrist. Medication Ordered: IV NS : initial bolus none -, then 1000 mL/hr for X1 (NOW). Start 04:05 09/24/2016 Rebecca Sadler R.N., Stop 04:15 09/24/2016 Rebecca Sadler R.N. Medication Administered: Albumin 25% in 50 ml *, Dose: 50 ml * IV. Medication Ordered: - (Albumin 25 grams IV x 1 now.). Start 04:05 09/24/2016 Rebecca Sadler R.N., Stop 06:21 09/24/2016 Rebecca Sadler R.N. Medication Administered: IV NS (SALINE), Dose: IV Fluids over 1 hour(s), Rate: 1000 mL/hr, Dispensed: 1000 mL bag, Site: #2 right wrist. Medication Ordered: IV NS : initial bolus none -, then 1000 mL/hr for X2 (NOW). Start 04:30 09/24/2016 Rebecca Sadler RSean., Stop 04:59 09/24/2016 Twila Lea, Medication Administered: ZOSYN [IVPB] (PIPERACILLIN SOD-TAZOBACTAM SO), Dose: 2.25 gm IVPB over 30 minute(s), Rate: 120 mL/hr, Dispensed: 60 mL bag, Site: #2 right wrist. Medication Ordered: Zosyn IV 2.25 gm/50mL (NOW).
--- NOTE | 2016-09-24 10:30 | ED DISCHARGE INSTRUCTIONS ---
Patient: DARRYL TOBIAS General Instructions [facility] VisitID: [id number] [address] [place] [address] 50y, M Registration Date/Time: 09/24/2016 09/24/2016 03:50 BP: 88/46. HR: 74. RR: 16. O2 saturation: 97%. Vital Signs: have been reviewed. Hypotensive. Heart rate normal. Respiratory rate normal. Oxygen saturation normal. Umbilical hernia. No reducible hernia, recurrent hernia, incarcerated hernia, obstruction or gangrene. Alcoholic cirrhosis of the liver. Complete abdominal wound dehiscence. Moderate acute renal failure. Not chronic renal failure or end stage renal disease. Abnormal serum liver function test. Moderate thrombocytopenia. (Electronically signed by Wesley Nelson Dr. 09/24/2016 10:30)
--- NOTE | 2016-09-24 17:40 | OPERATIVE REPORT ---
DATE OF SURGERY: 09/24/2016 SURGEON: Marcus Alexander III, MD FLAT BREAKDOWN PROCESSOR: None. PREOPERATIVE DIAGNOSIS: 1. Chronic umbilical hernia with skin erosion and leaking ascites POSTOPERATIVE DIAGNOSIS: 1. Chronic umbilical hernia with skin erosion and leaking ascites (incarcerated ) PROCEDURE PERFORMED: 1. Open excision of redundant periumbilical skin and subcutaneous tissue and repair of umbilical fascial defect. ANESTHESIA: General endotracheal. ESTIMATED BLOOD LOSS: None. FLUIDS: 500 mL lactated Ringer's. PATHOLOGY SPECIMEN: Umbilical skin, contents, and hernia sac. INDICATIONS: The patient is a 50-year-old, chronic alcoholic, with cirrhosis, probable hepatitis, ascites, with a chronic umbilical hernia. The patient is followed by a electrical equipment tester in [place], surgeons at [facility] have refused to repair his hernia until he gets his hepatitis under control. The patient developed excoriation of the superficial umbilicus. [facility] scheduled the patient for surgery this coming week, however, on the evening of admission, he developed copious drainage of ascites from the area of excoriation. SURGICAL FINDINGS: The patient was noted to have a considerable amount of redundancy in the periumbilical skin, incarcerated omentum within the hernia sac, and leaking ascites through an area of excoriation on the superficial aspect of the umbilicus and 4 x 4 cm fascial defect. SURGICAL TECHNIQUE: The patient was brought to the operating room and placed in the dorsal supine position, where he underwent general endotracheal anesthesia by the anesthesiology department. After proper anesthesia had taken effect, the patient 's abdomen was wiped down with alcohol and then prepped using Betadine and draped in a sterile fashion. The area around the umbilicus was infiltrated using local anesthetic. The redundant skin was elliptically excised This incision was carried down through skin and subcutaneous tissue down onto the fascia. Hemostasis achieved using electrocautery. The hernia sac was transected and the contents reduced. The hernia sac and portion of the contents were handed off the field. The hernia sac was then further transected at the level of the fascial edges along with peritoneum. The fascial defect was closed transversely using [id number] Prolene suture and further reinforced, imbricated, using 2-0 Prolene continuous suture. The wound was irrigated with warm normal saline and antibiotic solution and the wound closed in layers using 3-0 Polysorb and the skin further approximated using 4-0 subdermal Polysorb continuous suture. Steri- Strips were placed over the wound. Pressure occlusive dressing was placed over the umbilicus. The patient was placed in abdominal binder, extubated and transferred to the recovery room in stable condition. There were no intraoperative or anesthetic complications.
--- NOTE | 2016-09-24 17:40 | OPERATIVE REPORT ---
DATE OF SURGERY: 09/24/2016 SURGEON: Marcus Alexander III, MD SAFETY SEALER: None. PREOPERATIVE DIAGNOSIS: 1. Chronic umbilical hernia with skin erosion and leaking ascites POSTOPERATIVE DIAGNOSIS: 1. Chronic umbilical hernia with skin erosion and leaking ascites (incarcerated ) PROCEDURE PERFORMED: 1. Open excision of redundant periumbilical skin and subcutaneous tissue and repair of umbilical fascial defect. ANESTHESIA: General endotracheal. ESTIMATED BLOOD LOSS: None. FLUIDS: 500 mL lactated Ringer's. PATHOLOGY SPECIMEN: Umbilical skin, contents, and hernia sac. INDICATIONS: The patient is a 50-year-old, chronic alcoholic, with cirrhosis, probable hepatitis, ascites, with a chronic umbilical hernia. The patient is followed by a manufacturing process technician in [place], surgeons at [facility] have refused to repair his hernia until he gets his hepatitis under control. The patient developed excoriation of the superficial umbilicus. [facility] scheduled the patient for surgery this coming week, however, on the evening of admission, he developed copious drainage of ascites from the area of excoriation. SURGICAL FINDINGS: The patient was noted to have a considerable amount of redundancy in the periumbilical skin, incarcerated omentum within the hernia sac, and leaking ascites through an area of excoriation on the superficial aspect of the umbilicus and 4 x 4 cm fascial defect. SURGICAL TECHNIQUE: The patient was brought to the operating room and placed in the dorsal supine position, where he underwent general endotracheal anesthesia by the anesthesiology department. After proper anesthesia had taken effect, the patient 's abdomen was wiped down with alcohol and then prepped using Betadine and draped in a sterile fashion. The area around the umbilicus was infiltrated using local anesthetic. The redundant skin was elliptically excised This incision was carried down through skin and subcutaneous tissue down onto the fascia. Hemostasis achieved using electrocautery. The hernia sac was transected and the contents reduced. The hernia sac and portion of the contents were handed off the field. The hernia sac was then further transected at the level of the fascial edges along with peritoneum. The fascial defect was closed transversely using [id number] 0 Prolene suture and further reinforced, imbricated, using 2-0 Prolene continuous suture. The wound was irrigated with warm normal saline and antibiotic solution and the wound closed in layers using 3-0 Polysorb and the skin further approximated using 4-0 subdermal Polysorb continuous suture. Steri- Strips were placed over the wound. Pressure occlusive dressing was placed over the umbilicus. The patient was placed in abdominal binder, extubated and transferred to the recovery room in stable condition. There were no intraoperative or anesthetic complications.
[2016-09-25] VITALS (8 sets, daily range): BP systolic 86–108; BP diastolic 46–64
[2016-09-25] MEDS ORDERED: DEMEROL50 MG PO (09:29)
--- NOTE | 2016-09-25 09:31 | Provider's Discharge Care Plan ---
Problem, Goal, Plan Problem List 1. Umbilical hernia Goals: Improve disease control, Therapeutic intervention Instructions: Follow up as directed, Take meds as directed, ABDDOMINAL BINDER 17/04
--- NOTE | 2016-09-25 09:31 | Provider's Discharge Care Plan ---
Problem, Goal, Plan Problem List 1. Umbilical hernia Goals: Improve disease control, Therapeutic intervention Instructions: Follow up as directed, Take meds as directed, ABDDOMINAL BINDER 17/04
--- NOTE | 2016-09-25 13:44 | DISCHARGE SUMMARY ---
ADMIT DATE: 09/24/2016 DISCHARGE DATE: 09/25/2016 ADMITTING DIAGNOSES: 1. Septic shock 2. Secondary bacterial peritonitis 3. Perforated umbilical hernia 4. End-stage liver disease 5. Alcoholic cirrhosis 6. Chronic kidney disease 7. Tobacco use disorder DISCHARGE DIAGNOSES: 1. Umbilical hernia, ruptured 2. Septic shock 3. End-stage liver disease, alcoholic 4. Alcoholic cirrhosis 5. Chronic kidney disease 6. Tobacco use disorder BRIEF HISTORY: The patient presented to [facility] with sudden onset of vigorous drainage of fluid from his umbilicus. He has had a history of alcoholic cirrhosis and ascites and has had a scab on his umbilicus for some time. He spoke to surgeons in [facility] who declined to operate on it; however, it then started to drain. He presented to [facility] emergently, having lost "1-2 gallons" of fluid. The patient was markedly hypotensive, consistent with septic shock, and blood cell count was markedly elevated. HOSPITAL COURSE: The patient was admitted, treated with IV fluids, IV antibiotics, and surgical consultation. Dr. Alexander consulted, and the patient was taken to the operating theater. There was no rupture of the bowels. However, the umbilical hernia had ruptured, causing free leakage of ascites. With correction and IV hydration and IV antibiotics, the patient steadily improved, making likely that sepsis is a minor part of his initial problem and the shock was primarily from sudden fluid loss. The patient's liver failure remained stable through the hospitalization, and he was able to ambulate and tolerate oral intake on 09/25/2016. Vital signs are stable. DISCHARGE INSTRUCTIONS/MEDICATIONS: He was, therefore, discharged home, with plan to follow up with Dr. Alexander in 2-3 days for surgical followup and with his primary physician and liver specialist within 2 weeks. Discharge medications: Meperidine 50 mg p.o. q.6 hours p.r.n. pain. Furosemide 20 mg p.o. daily. Lactulose 10 g p.o. daily. Spironolactone 12.5 mg p.o. daily. Propranolol 20 mg p.o. b.i.d. Abilify 5 mg p.o. daily. (All medications are to be continued as prior to admission, with the exception of meperidine.)
== END 2016-09-25 11:53 | disposition home or self-care (01) | DRG 853 ==
LOC: ED SRH 02:14 → TRANS SRH 03:54 → CC SRH 06:41
PROVIDERS: Specialist; ADMIT Family Medicine
PROC: 0WQF0ZZ Repair Abdominal Wall, Open Approach (ICD-10-PCS; principal; 2016-09-24 07:30)
DX: A41.9 Sepsis, unspecified organism (principal); R65.21 Severe sepsis with septic shock; K65.8 Other peritonitis; R57.1 Hypovolemic shock; K42.0 Umbilical hernia with obstruction, without gangrene; N17.9 Acute kidney failure, unspecified; F10.20 Alcohol dependence, uncomplicated; K70.31 Alcoholic cirrhosis of liver with ascites; K72.10 Chronic hepatic failure without coma; N18.9 Chronic kidney disease, unspecified; F17.210 Nicotine dependence, cigarettes, uncomplicated
CPT/HCPCS: 50002; 60001; 70002; 80102; 80212; 84038; 84046; 84515; 84519; 90070; 90074; 90098; 90100; 90133; 90309; 90470; 91588; 91672; 92010; 92031; 93004; 94001; 94060; 95059

== ENCOUNTER 2016-10-21 09:32 | Day surgery (SDC) | payer OTHER ==
[~2016-10-21 09:32] MED LIST: ABILIFY5 MG PO; ALDACTONE25 MG PO; DEMEROL50 MG PO; INDERAL EQUIVAL20 MG PO; LACTULOSE PO; LASIX20 MG PO
--- NOTE | 2016-10-21 10:20 | NUR ---
PRE OP INSTRUCTIONS GIVEN AND SAFETY ISSUES DISCUSSED PT HAD QUESTIONS ANSWERED PT CONFIRMED PROCEDURE PT SIGNED CONSENT PT STATED WAS COLD WARM BLANKETS APPLIED
--- NOTE | 2016-10-21 11:20 | NUR ---
PT WOUND CLASS CONTAMINATED DUE TO ASCITES LEAKING THROUGH PREVIOUS HERNIA FIX.
--- NOTE | 2016-10-21 11:47 | NUR ---
PT RECEIVED TO PACU AROUSABLE TO VOICE. VSS. ABDOMINAL BINDER PLACED IN OR.
[2016-10-21] MEDS ORDERED: DEMEROL50 MG PO (11:48)
--- NOTE | 2016-10-21 11:49 | Provider's Discharge Care Plan ---
Problem, Goal, Plan Problem List 1. S/P REPAIR RECURRENT FASCIAL UMBILICAL DEFECT Goals: Improve disease control, Therapeutic intervention Instructions: Follow up as directed, Take meds as directed, Imprortant! abdominal binder 17/04 as tight as pt can stand
--- NOTE | 2016-10-21 12:12 | NUR ---
CHIEF COMPLAINT ON AROUSING WAS SEVERE HEART BURN. MEDICATED WITH BICITRA PO WITH NOW SOME IMPROVEMENT. PT REPOSITIONED FOR COMFORT. WARM BLANKETS FOR COMFORT.
--- NOTE | 2016-10-21 12:58 | NUR ---
PT RETURNED FROM PACU AT 1220 STATED WAS COLD BLANKETS APPLIED WANTED TO SLEEP 1300 PT UP TO BR PT VOIEDED EATING JELLO AND CRACKERS BINDER REMAINS IN PLACE
--- NOTE | 2016-10-21 13:46 | NUR ---
PT WANTING TO GO HOME REVIEWED DISCHARGE INSTRUCTIONS VERBAL AND WRITTEN PT EXPRESSED UNDERSTANDING STATED WOULD LEAVE BINDER AND DRESSING IN PLACE PT DISCHARGED PER WC ACCOMPANIED BY FRIEND
--- NOTE | 2016-10-21 13:47 | OPERATIVE REPORT ---
DATE OF SURGERY: 10/21/2016 SURGEON: Marcus Alexander III, MD FLAMER SEALER: None. PREOPERATIVE DIAGNOSIS: 1. Recurrent fascial defect with ascitic leakage POSTOPERATIVE DIAGNOSIS: 1. Recurrent fascial defect with ascitic leakage PROCEDURE PERFORMED: 1. Repair of recurrent fascial defect ANESTHESIA: TIVA, local 1% Xylocaine with epinephrine. INDICATIONS: The patient is a 50-year-old male with known chronic cirrhosis, hepatitis C, ascites, end-stage liver disease, who presented approximately 2 weeks ago for emergent umbilical hernia repair and ascitic leak, was doing well and then developed a small dehiscence of his wound with ascitic leak. Attempted conservative management with suturing this area with nylon was unsuccessful and now he is being admitted for definitive treatment. SURGICAL FINDINGS: The patient was noted to have a fascial defect measuring approximately 0.5 cm in size, through which ascites was leaking. No evidence of infection. SURGICAL TECHNIQUE: The patient was brought to the operating room and placed in the dorsal supine position, where he was administered TIVA and monitored closely by anesthesia. After proper anesthesia had taken effect, the patient's abdomen was prepped using alcohol and then Betadine. The patient's abdomen was draped in a sterile fashion. The small skin dehiscence through which ascites was seen pooling was inspected and infiltrated using local anesthetic. A hemostat was placed in the wound and the previous incision site was opened approximately 5 cm. This was traced down to the fascial defect, which was noted and fibrinous exudate was excised sharply and the fascial edges were reapproximated using [id number] 0 Prolene interrupted suture. To imbricate this, the subcutaneous edematous tissue was then approximated over this using running 2-0 Prolene suture. Testing the abdomen for a leak revealed no evidence of leakage. The skin was then approximated using 4-0 subdermal Polysorb and Steri-Strips, pressure occlusive dressing was placed over the surgical site. The patient was placed in an abdominal binder. The patient tolerated the procedure well and was transferred to the recovery room in stable condition. There were no intraoperative or anesthetic complications.
--- NOTE | 2016-10-21 13:47 | OPERATIVE REPORT ---
DATE OF SURGERY: 10/21/2016 SURGEON: Marcus Alexander III, MD MILLER DISTILLERY: None. PREOPERATIVE DIAGNOSIS: 1. Recurrent fascial defect with ascitic leakage POSTOPERATIVE DIAGNOSIS: 1. Recurrent fascial defect with ascitic leakage PROCEDURE PERFORMED: 1. Repair of recurrent fascial defect ANESTHESIA: TIVA, local 1% Xylocaine with epinephrine. INDICATIONS: The patient is a 50-year-old male with known chronic cirrhosis, hepatitis C, ascites, end-stage liver disease, who presented approximately 2 weeks ago for emergent umbilical hernia repair and ascitic leak, was doing well and then developed a small dehiscence of his wound with ascitic leak. Attempted conservative management with suturing this area with nylon was unsuccessful and now he is being admitted for definitive treatment. SURGICAL FINDINGS: The patient was noted to have a fascial defect measuring approximately 0.5 cm in size, through which ascites was leaking. No evidence of infection. SURGICAL TECHNIQUE: The patient was brought to the operating room and placed in the dorsal supine position, where he was administered TIVA and monitored closely by anesthesia. After proper anesthesia had taken effect, the patient's abdomen was prepped using alcohol and then Betadine. The patient's abdomen was draped in a sterile fashion. The small skin dehiscence through which ascites was seen pooling was inspected and infiltrated using local anesthetic. A hemostat was placed in the wound and the previous incision site was opened approximately 5 cm. This was traced down to the fascial defect, which was noted and fibrinous exudate was excised sharply and the fascial edges were reapproximated using [id number] 0 Prolene interrupted suture. To imbricate this, the subcutaneous edematous tissue was then approximated over this using running 2-0 Prolene suture. Testing the abdomen for a leak revealed no evidence of leakage. The skin was then approximated using 4-0 subdermal Polysorb and Steri-Strips, pressure occlusive dressing was placed over the surgical site. The patient was placed in an abdominal binder. The patient tolerated the procedure well and was transferred to the recovery room in stable condition. There were no intraoperative or anesthetic complications.
== END 2016-10-21 13:48 | disposition home or self-care (01) ==
LOC: OR SRH 09:32 → SCU SRH 09:38
PROVIDERS: Specialist
PROC: 0JQ80ZZ Repair Abdomen Subcutaneous Tissue and Fascia, Open Approach (ICD-10-PCS; principal; 2016-10-21 11:30)
DX: T81.32XA Disruption of internal operation (surgical) wound, not elsewhere classified, initial encounter (principal); K70.40 Alcoholic hepatic failure without coma; B18.2 Chronic viral hepatitis C; Z72.0 Tobacco use
CPT/HCPCS: 29229; 29240; 50004; 60001; 80212; 84038; 84514; 84518; 94060

== ENCOUNTER 2016-10-27 14:56 | Inpatient (IN) | payer OTHER ==
[2016-10-27] VITALS (8 sets, daily range): BP systolic 78–92; BP diastolic 51–83
[2016-10-27] MEDS ORDERED: KRISTALOSE10 GM PO (16:14)
[2016-10-27] MEDS ORDERED: ALDACTONE25 MG PO (16:16)
[2016-10-27] MEDS ORDERED: DEMEROL50 MG PO (19:53)
--- NOTE | 2016-10-27 19:54 | Provider's Discharge Care Plan ---
Problem, Goal, Plan Problem List 1. S/P REPAIR RECURRENT UMBILICAL HERNIA WITH MESH Goals: Improve function, Therapeutic intervention Instructions: Follow up as directed, Take meds as directed, abdominal binder 17/04
--- NOTE | 2016-10-27 21:12 | OPERATIVE REPORT ---
DATE OF SURGERY: 10/27/2016 SURGEON: Marcus Alexander III, MD JUNIOR LEGAL SECRETARY: None. PREOPERATIVE DIAGNOSIS: 1. Recurrent umbilical hernia with ascitic leak POSTOPERATIVE DIAGNOSIS: 1. Recurrent umbilical hernia with ascitic leak PROCEDURES PERFORMED: 1. Repair recurrent umbilical hernia with MatriStem mesh ANESTHESIA: TIVA, local, 1% Xylocaine with epinephrine, 0.5% Marcaine with epinephrine. COMPLICATIONS: No intraoperative or anesthetic complications. INDICATIONS: The patient is a 50-year-old male, known cirrhotic with ascites, end-stage liver disease, who underwent emergent repair of an umbilical hernia with eroded umbilicus and leaking ascites approximately 3 weeks ago. On 10/21/2016 he was returned to the operating room where he was noted to have more ascites leaking from his umbilicus. He was found to have a small dehiscence and this was repaired. The patient returned to the clinic today leaking ascites again and he is scheduled for emergent repair. SURGICAL FINDINGS: The patient was noted to have 2 small fascial dehiscence, approximately measuring 1-2 mm in size. SURGICAL TECHNIQUE: The patient was brought to the operating room, placed in the dorsal supine position, where he was administered TIVA and monitored closely by anesthesia. After proper anesthesia had taken effect, the patient's surgical site was infiltrated using local anesthetic. Once anesthesia had taken effect, an incision was made through the previous incision, carried down to skin, subcutaneous tissue, down onto the fascia. All foreign body sutures were removed. Right-angle clamp was placed in the area of the dehiscence and the fascia was opened using sharp dissection. Once the fascia was open, the edges of the fascia were trimmed away and the fascial edges were once again approximated using 0 Prolene continuous suture. The skin edges were undermined and a piece of MatriStem mesh was then selected and placed as onlay repair, securing it peripherally using 3-0 Prolene continuous suture. The mesh was fenestrated to allow drainage of the underlying serous fluid. The wound was irrigated copiously with warm normal saline, antibiotic solution. The wound was closed in layers using 3-0 Prolene interrupted suture and the skin approximated using 4-0 subdermal Polysorb and Steri-Strips. Sterile pressure occlusive dressing is placed over the site. The patient was placed in abdominal binder, was transferred to the recovery room in stable condition.
--- NOTE | 2016-10-27 21:39 | Progress Note ---
Subjective General Full note dictated Asked to eval patient for low BP post op. Patient denies cp, sob only from laying on his back. Post op was uncomplicated with umbillical hernia, was with sedation. Now low bp in the 75/52 range will improve with levaphed and has had 1 1/2 L IVF.and albumin. Known hx of Liver dz. Post op: has new LBBB and low bp will give IVF and check on trop I. Full code and would want transfer if cardiac intevertion was suspected.
--- NOTE | 2016-10-27 23:11 | CONSULTATION REPORT ---
DATE OF CONSULTATION: 10/27/2016 CHIEF COMPLAINT: 1. Low blood pressure HISTORY OF PRESENT ILLNESS: This is a 50-year-old male who is being consulted to me after having low blood pressures postop from an umbilical hernia repair, from the anesthesia department. The patient is status post hernia repair, umbilical, by Dr. Alexander. He is having leaking from his umbilical hernia and with the history of cirrhotic liver disease and ascites. He had also had a recent admit to [facility] in early 09/2016 where he had septic shock secondary to bacterial peritonitis, also he had umbilical hernia, end-stage liver disease, alcoholic cirrhosis, chronic kidney disease and tobacco use at that time. He initially had an uneventful hernia repair and then I was not able to get his blood pressure up afterwards in spite of albumin, IV fluids and pressor agents, his blood pressure remained in the 70s systolic. He denies having any chest pain and/or shortness of breath other than from laying on his back in Trendelenburg. He is awake and alert. MEDICAL/SURGICAL HISTORY: Past medical history: As noted with cirrhosis, end- stage liver disease, hepatitis from alcohol and ascites with previous septic shock recently. Past surgical history: He has had the umbilical hernia repair around 3 weeks ago, on 10/21/2016. 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 MEDICATIONS: In review of his last discharge summary, he was on postoperatively: 1. Demerol 50 mg p.o. q.6 hours p.r.n. pain. 2. Furosemide 20 mg p.o. daily. 3. Lactulose 10 g p.o. daily. 4. Spironolactone 12.5 mg daily. 5. Propranolol 20 mg p.o. b.i.d. 6. Abilify 5 mg p.o. daily. 7. All the other medications on that list were prehospitalization medications as well. ALLERGIES: 1. NONE KNOWN. SOCIAL HISTORY: He is unemployed. Does not drink coffee. Smokes a pack of cigarettes per day and has not drank alcohol recently, however, previously was a heavy drinker. FAMILY HISTORY: Father at age 50 of a heart attack, mom at 84 of natural causes. REVIEW OF SYSTEMS: Notable for the umbilical hernia that was actually squirting out fluids prior to his repair and he has had some mild abdominal distension, but not much because of all the fluid that leaks out. 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 Review of systems is otherwise negative. PHYSICAL EXAMINATION: GENERAL: He is an awake and alert make who is talking in full sentences, a little bit slow in his speech. VITAL SIGNS: Blood pressure of 81/61, heart rate of 80, 93% on 4 L and his respirations are 15. HEENT: Left eye has a prosthesis. Right eye has mild icterus. Extraocular movements intact. Oropharynx is clear. LUNGS: Clear to auscultation bilaterally. HEART: Regular rate and rhythm. ABDOMEN: Postop with abdominal binder. GENITOURINARY: Deferred. RECTAL: Deferred. NEUROLOGIC: Cranial nerves II-XII intact. Strength and sensation are grossly intact. LAB/IMAGING: Labs: The patient has an INR that was 1.6. His creatinine was 2.7 recently, sodium 135, potassium 4.1, BUN of 35, HCO3 of 20. Hematocrit 31.9, platelets of 59,000. Ammonia level was 18. Procalcitonin on his labs from previous hospitalization was less than 0.05. EKG: Previous EKG shows a sinus rhythm and a slightly widened complex EKG; however, a new EKG today appears to have minimum to left bundle branch block, in sinus rhythm. IMPRESSION/PLAN: 1. Postoperative hypotension in a patient 50 years old with chronic medical problems including chronic liver disease and cirrhosis. He is now hypotensive. He has some left bundle branch block on EKG. I treated patient initially with aggressive IV fluids for pulmonary tank. He has been given some pressor agents, also we will order a troponin I x3. He is interested in more aggressive management. Also, if he were to have a cardiac insult, we will transfer to [place], or other cath / cardiology appropriat facility. He is felling well in spite of his low blood pressure and with the IV fluids his blood pressures are now improving some, with his blood pressures now in mid 80s, over the previous mid 70s and so slightly improving with our current plan. Will monitor on labs.
[2016-10-28] VITALS (10 sets, daily range): BP systolic 80–103; BP diastolic 44–66
--- NOTE | 2016-10-28 04:29 | Progress Note ---
Subjective General Patient states that he is feeling well. NO cp, sob, no issues other than mild abdominal post op discomfort. Physical Exam Vital Signs / I&Os Vital Signs Date Time Temp Pulse Resp B/P Pulse O2 O2 Flow FiO2 Ox Delivery Rate 02/03 0300 96.3 62 9 95/62 94 Nasal 4.0 Cannula 02/03 0236 95.7 60 14 99/60 95 Mask 40 02/03 0200 95.5 59 9 102/62 96 Nasal 4.0 Cannula 02/03 0100 97.3 55 12 93/61 95 Nasal 4.0 Cannula 02/03 0030 75 13 97/66 96 Nasal 4.0 Cannula 02/03 0015 74 12 96/61 96 Nasal 4.0 Cannula 02/03 0000 Nasal 4.0 Cannula 02/03 0000 94.5 74 9 90/60 99 Nasal 4.0 Cannula 02/02 2355 98.4 76 13 79/83 96 4.0 02/02 2345 73 12 79/53 96 Nasal 4.0 Cannula 02/02 2330 74 12 81/55 96 Nasal 4.0 Cannula 02/02 2315 75 11 79/54 96 Nasal 4.0 Cannula 02/02 2249 97.7 76 11 78/51 95 Nasal 4.0 Cannula 02/02 2245 75 11 89/55 94 Nasal 4.0 Cannula 02/02 2215 75 10 79/54 92 02/02 2210 74 10 79/53 92 02/02 2205 72 9 77/54 92 02/02 2200 74 10 74/52 92 02/02 2155 73 10 77/51 93 02/02 2150 96.3 72 13 83/63 93 02/02 214 79 15 81/61 95 02/02 0 78 11 83/60 95 02/02 2134 75 21 75/52 94 02/02 0 74 20 83/51 94 02/02 2124 73 18 84/54 93 02/02 2119 73 10 83/53 95 02/02 2114 74 10 82/51 95 02/02 2109 73 12 71/43 93 02/02 2104 73 13 78/50 93 02/02 2099 74 17 100/64 93 02/02 2055 70 17 96/66 91 02/02 2054 70 14 90/62 91 02/02 2049 69 12 75/47 92 02/02 2043 71 14 69/46 92 02/02 5 71 9 81/53 94 10/27 2029 70 10 94/66 94 10/27 2024 74 14 92/62 93 10/27 2022 69 9 96/67 93 10/27 2013 68 10 99/65 93 10/27 2009 69 9 74/49 92 10/27 1999 69 13 128/90 99 10/275 68 13 97/60 99 10/27 1950 65 15 99/61 100 10/27 1945 51 16 82/52 99 10/27 1940 55 21 116/74 100 10/27 1935 96.4 53 21 70/44 100 10/27 1630 Room Air 10/27 1527 97.3 54 16 92/52 100 Room Air I&O 10/28 0000 10/27 1600 10/27 0800 Intake Total 2900 0 Output Total 0 Balance 2900 0 General Appearance Alert, sitting up at side of bed HEENT L eye prosthesis Lungs Normal exam, Clear to auscultation, Normal air movement Cardiovascular Regular rate and rhythm Abdomen post op binder Extremities No edema LAB Results Laboratory Tests 10/28 10/28 10/28 10/27 0320 0320 0000 2145 Chemistry Plasma Sodium (136 - 145 mmol/L) 130 Plasma Potassium (3.5 - 5.1 mmol/L) 8.4 Plasma Chloride (98 - 107 mmol/L) 102 CO2 (Enzymatic) (21 - 32 mmol/L) 14 BUN (7 - 18 mg/dL) 134 Creatinine (0.6 - 1.3 mg/dL) Pending Est GFR ( Amer) (mL/min) 9.17 Est GFR (Non-Af Amer) (mL/min) 7.57 Glucose (70 - 110 mg/dL) 86 Plasma Calcium (8.5 - 10.1 mg/dL) 8.3 Total Bilirubin (0.0 - 1.0 mg/dL) 4.9 AST (15 - 37 U/L) 39 ALT (12 - 78 U/L) 17 Alkaline Phosphatase (46 - 116 U/L) 104 Troponin (0.00 - 1.5 ng/mL) <0.05 <0.05 Total Protein (6.4 - 8.2 g/dL) 5.6 Albumin (3.3 - 5.0 g/dL) 2.3 Hematology WBC (4.5 - 11.5 K/uL) 7.3 Cancelled 5.4 RBC (4.50 - 5.90 M/uL) 2.58 Cancelled 2.20 Hgb (13.5 - 17.5 gm/dL) 9.8 Cancelled 8.7 Hct (41.0 - 53.0 %) 29.0 Cancelled 25.6 MCV (80 - 100 fL) 112 Cancelled 116 MCH (26 - 34 pg) 38 Cancelled 39 RDW (11.6 - 14.8 %) 17.4 Cancelled 14.5 Neut % (Auto) (50 - 75 %) 62.3 59.4 Lymph % (Auto) (25 - 40 %) 23.6 28.8 [place] % (Auto) (3 - 14 %) 12.2 9.7 Eos % (Auto) (0 - 4 %) 1.3 1.7 Baso % (Auto) (0 - 2 %) 0.6 0.4 Plt Count, EDTA (150 - 400 K/uL) 43 Cancelled 39 RBC Morphology NORMAL RBC POP PUBS MCHC (31 - 37 g/dL) 34 Cancelled 34 Assessment and Plan Problem List 1. Hyperkalemia Plan RE check on bmp stat, start on insulin and dextrose. If the numbers are correct I will likely need to transfer patient for dialysis. 2. Renal failure Plan acute issues in face of LFTs
--- NOTE | 2016-10-28 05:38 | Progress Note ---
Subjective General I have discussed case with Dr. Hernandez Mccullough and will transfer to [facility] in [place]. Will give kayexalate, Ca Gluconate, and albuterol nebs now while waiting on dialysis. I will repeat a bmp, ekg prior to his transport. Patient still states he feels well. Physical Exam Vital Signs / I&Os Vital Signs Date Time Temp Pulse Resp B/P Pulse O2 O2 Flow FiO2 Ox Delivery Rate 02/ 0505 96.4 58 11 95/56 96 Nasal 4.0 Cannula 02/03 0410 96.4 54 13 103/55 96 Nasal Cannula 02/03 0300 96.3 62 9 95/62 94 Nasal 4.0 Cannula 02/03 0236 95.7 60 14 99/60 95 Mask 40 02/03 0200 95.5 59 9 102/62 96 Nasal 4.0 Cannula 02/03 0100 97.3 55 12 93/61 95 Nasal 4.0 Cannula 02/03 0030 75 13 97/66 96 Nasal 4.0 Cannula 02/03 0015 74 12 96/61 96 Nasal 4.0 Cannula 02/03 0000 Nasal 4.0 Cannula 02/03 0000 94.5 74 9 90/60 99 Nasal 4.0 Cannula 02/02 2355 98.4 76 13 79/83 96 4.0 02/02 2345 73 12 79/53 96 Nasal 4.0 Cannula 02/02 2330 74 12 81/55 96 Nasal 4.0 Cannula 02/02 2315 75 11 79/54 96 Nasal 4.0 Cannula 02/02 2249 97.7 76 11 78/51 95 Nasal 4.0 Cannula 02/02 2245 75 11 89/55 94 Nasal 4.0 Cannula 02/02 2215 75 10 79/54 92 02/02 2210 74 10 79/53 92 02/02 2205 72 9 77/54 92 02/02 2200 74 10 74/52 92 02/02 215 73 10 77/51 93 02/02 0 96.3 72 13 83/63 93 02/02 2144 79 15 81/61 95 02/02 0 78 11 83/60 95 02/02 2134 75 21 75/52 94 02/02 0 74 20 83/51 94 02/02 2124 73 18 84/54 93 02/02 2119 73 10 83/53 95 02/02 2114 74 10 82/51 95 /2109 73 12 71/43 93 /02 2104 73 13 78/50 93 /2099 74 17 100/64 93 /2055 70 17 96/66 91 /02 2054 70 14 90/62 91 /2049 69 12 75/47 92 /2043 71 14 69/46 92 /2034 71 9 81/53 94 10/27 2029 70 10 94/66 94 10/27 2024 74 14 92/62 93 /02 2022 69 9 96/67 93 10/27 2013 68 10 99/65 93 10/27 2009 69 9 74/49 92 10/27 1999 69 13 128/90 99 /1954 68 13 97/60 99 /02 1950 65 15 99/61 100 /02 1945 51 16 82/52 99 02/02 1940 55 21 116/74 100 02/02 1935 96.4 53 21 70/44 100 02 1630 Room Air 10/27 1527 97.3 54 16 92/52 100 Room Air I&O 10/28 0000 02 1600 10/27 0800 Intake Total 2900 0 Output Total 0 Balance 2900 0 LAB Results Laboratory Tests 10/28 10/28 10/28 10/28 0500 0430 0320 0320 Chemistry Plasma Sodium (136 - 145 mmol/L) 131 130 Plasma Potassium (3.5 - 5.1 mmol/L) 8.1 8.4 Plasma Chloride (98 - 107 mmol/L) 103 102 CO2 (Enzymatic) (21 - 32 mmol/L) 14 14 BUN (7 - 18 mg/dL) Pending 134 Creatinine (0.6 - 1.3 mg/dL) 8.0 8.0 Est GFR ( Amer) (mL/min) 9.17 9.17 Est GFR (Non-Af Amer) (mL/min) 7.57 7.57 Glucose (70 - 110 mg/dL) 89 86 Plasma Calcium (8.5 - 10.1 mg/dL) 8.3 8.3 Total Bilirubin (0.0 - 1.0 mg/dL) 4.9 AST (15 - 37 U/L) 39 ALT (12 - 78 U/L) 17 Alkaline Phosphatase (46 - 116 U/L) 104 Troponin (0.00 - 1.5 ng/mL) <0.05 Total Protein (6.4 - 8.2 g/dL) 5.6 Albumin (3.3 - 5.0 g/dL) 2.3 Hematology WBC (4.5 - 11.5 K/uL) Cancelled 7.3 RBC (4.50 - 5.90 M/uL) Cancelled 2.58 Hgb (13.5 - 17.5 gm/dL) Cancelled 9.8 Hct (41.0 - 53.0 %) Cancelled 29.0 MCV (80 - 100 fL) Cancelled 112 MCH (26 - 34 pg) Cancelled 38 RDW (11.6 - 14.8 %) Cancelled 17.4 Neut % (Auto) (50 - 75 %) 62.3 Lymph % (Auto) (25 - 40 %) 23.6 [place] % (Auto) (3 - 14 %) 12.2 Eos % (Auto) (0 - 4 %) 1.3 Baso % (Auto) (0 - 2 %) 0.6 Plt Count, EDTA (150 - 400 K/uL) Cancelled 43 RBC Morphology (82017 A) 2+ ANISOCYTOSIS PUBS MCHC (31 - 37 g/dL) Cancelled 34 10/28 10/27 0000 2145 Chemistry Troponin (0.00 - 1.5 ng/mL) <0.05 Hematology WBC (4.5 - 11.5 K/uL) Cancelled 5.4 RBC (4.50 - 5.90 M/uL) Cancelled 2.20 Hgb (13.5 - 17.5 gm/dL) Cancelled 8.7 Hct (41.0 - 53.0 %) Cancelled 25.6 MCV (80 - 100 fL) Cancelled 116 MCH (26 - 34 pg) Cancelled 39 RDW (11.6 - 14.8 %) Cancelled 14.5 Neut % (Auto) (50 - 75 %) 59.4 Lymph % (Auto) (25 - 40 %) 28.8 [place] % (Auto) (3 - 14 %) 9.7 Eos % (Auto) (0 - 4 %) 1.7 Baso % (Auto) (0 - 2 %) 0.4 Plt Count, EDTA (150 - 400 K/uL) Cancelled 39 RBC Morphology NORMAL RBC POP PUBS MCHC (31 - 37 g/dL) Cancelled 34 Assessment and Plan Problem List 1. Renal failure Plan Acute on chronic renal dz and no CR-8.0 K 8.4 will transfer for likely dialysis 2. Hyperkalemia Plan albuterol, insulin, calcium kayexalate all ordered. Dialysis likely. 3. S/P REPAIR RECURRENT UMBILICAL HERNIA WITH MESH 4. End stage liver disease Plan Has end stage liver dz likely contributing to his chronic renal issues as well.
--- NOTE | 2016-10-28 06:40 | DISCHARGE SUMMARY ---
ADMIT DATE: 10/27/2016 DISCHARGE DATE: 10/28/2016 ADMITTING DIAGNOSES: 1. Umbilical hernia repair 2. Chronic liver disease 3. Multiple other chronic medical issues, including low platelets and elevated creatinine DISCHARGE DIAGNOSIS: 1. as above 2. acute on chronic renal failure Cr 8.0 3. Severe hyperkalemia 8.4 HOSPITAL COURSE: The patient had a surgery with Dr. Alexander. Please refer to operative note for details. Postoperatively, he had low blood pressure. I was asked to career technical counselor regarding low blood pressure last p.m. I treated him with fluid replacement, thinking about third spacing, monitored on hematocrit. Also was given some Levophed. She had an EKG that showed possible new left bundle branch block. Just started serial troponins. Checked on creatinine, and his BMP as part of his monitoring. On the BMP, he was found to have a creatinine of 8.0 and potassium of 8.4. At this point, repeat labs were done. Started on insulin, and with an abnormal repeat, called different hospital institutions for transfer, recognizing the patient will likely need to be on dialysis. The [facility] in [place] has accepted the patient. He has also been given albuterol, Kayexalate and calcium gluconate, and I will also recheck a BMP and EKG prior to his leaving. Currently the patient feels well. He denies any acute symptoms. He is able to sit up at the side of the bed without any dizziness, chest pain, or shortness of breath. His vital signs: His temperature is 96.4, blood pressure of 95/56 on the Levophed drip. He is saturating 96% on 4 L. Labs: His white count of 7.3, hematocrit of 29.0, and platelets of 43, which is actually better for him. His BMP, which was repleted with a second draw for confirmation: Sodium of 131, potassium 8.1, chloride of 103, CO2 of 14, and creatinine of 8.0. Glucose 89. Calcium 8.3. Troponin-I was initially less than 0.05 and has pending repeat. DISCHARGE INSTRUCTIONS/MEDICATIONS: Dr. Hernandez Mccullough is the accepting physician at [facility].
== END 2016-10-28 06:35 | disposition short-term general hospital (02) | DRG 353 ==
LOC: OR SRH 14:56 → ACUTE2 SRH 14:59 → OR SRH 15:13 → ACUTE2 SRH 15:46 → CC SRH 22:48
PROVIDERS: ADMIT Specialist
PROC: 0WUF0KZ Supplement Abdominal Wall with Nonautologous Tissue Substitute, Open Approach (ICD-10-PCS; principal; 2016-10-27 16:00)
PROC: 30233N1 Transfusion of Nonautologous Red Blood Cells into Peripheral Vein, Percutaneous Approach (ICD-10-PCS; 2016-10-28)
DX: K42.9 Umbilical hernia without obstruction or gangrene (principal); R18.8 Other ascites; I95.81 Postprocedural hypotension; N17.9 Acute kidney failure, unspecified; N18.6 End stage renal disease; E87.5 Hyperkalemia; K74.69 Other cirrhosis of liver; B18.2 Chronic viral hepatitis C; K72.10 Chronic hepatic failure without coma; I44.7 Left bundle-branch block, unspecified; D69.59 Other secondary thrombocytopenia
CPT/HCPCS: 50004; 60001; 80866; 81381; 83496; 84038; 84046; 84518; 90001; 90047; 90074; 90100; 90155; 90616; 91004; 91544; 95059